=== PATIENT | female | born 1990 | race Caucasian/White ===

== ENCOUNTER 2017-01-10 16:20 | Emergency (ER) | payer OTHER ==
[~2017-01-10] VITALS: Ht 167.6 cm; Wt 67.0 kg
[~2017-01-10 16:20] MED LIST: LEVO750T39 PO; OXYC1TAB24 PO
[2017-01-10 16:27] VITALS: BP 120/84; PULSE 87; RESP 14; O2SAT 100
[2017-01-10 17:35] LABS: BASOPHILS % (AUTO) 0.5 % (0-3); EOSINOPHILS % (AUTO) 1.8 % (0-5); MONOCYTES % (AUTO) 7.2 % (4-12); Mean Corpuscular Hemoglobin 29.3 pg (27.0-35.0); Mean Corpuscular Volume 86.7 fL (81-100); NEUTROPHILS % (AUTO) 63.6 % (40-74); Platelet Count 434 bil/L (150-400)
[2017-01-10 18:05] LABS: Magnesium 2.1 mg/dL (1.6-2.6)
[2017-01-10] MEDS ORDERED: HYDROcodone-APAP 5-325 mg Tablet PO ONE (19:00)
--- NOTE | 2017-01-10 19:08 | ED.REPORT ---
HPI-Abd Pain F Under 40 Date of Service January 10, 2017 ED Provider: Miguel Augustine PA-C Shana is a otherwise healthy 26-year-old female presents with a chief complaint of right lower quadrant abdominal pain. Patient reports a one-week history of insidious onset right lower quadrant abdominal pain which she describes as stabbing, and has woken her from sleep. She reports a history of a reposition herself in the bed was quite painful. Symptoms have improved since then. She reports a history of vaginal bleeding approximately 2 weeks ago that lasted for about a week despite one year without menstrual cycles. She reports vaginal discharge for the last week and vaginal burning today. She feels that a sexually transmitted disease is a possibility, that is unlikely because she uses a Mirena IUD. Admits chills, urinary frequency and nausea but denies fever, vomiting, diarrhea. Denies dysuria, hematuria. Admits back pain and a band across her mid back has been present for roughly 3 weeks. She states it feels "just like a kidney infection." She reports her back is tight, sore and tender. Denies numbness, tingling, weakness or pain in lower extremity. Denies fever, DM, HIV, organ transplant, immunosuppression, recent surgery, recent infection, history of back surgery, surgical implants and IV drug use. Denies bowel/bladder dysfunction and saddle anesthesia. Nursing Notes Stated Complaint: LOWER RIGHT PELVIC PAIN,LOWER BACK PAIN Chief Complaint: Female Abdominal Pain Nursing Notes Reviewed: Yes Allergies: Coded Allergies: azithromycin (Verified Allergy, Unknown, THROAT SWELLING, 07/10/16) Scheduled Doxycycline Monohydrate (Avidoxy) 100 Mg Tablet 100 MG PO BID Levofloxacin (Levofloxacin) 750 Mg Tablet 750 MG PO DAILY Sulfamethoxazole/Trimeth 800-160 mg (Bactrim DS) 1 Each Tablet 1 TABLET PO BID Scheduled PRN oxyCODONE (oxyCODONE) 5 Mg Tablet 5-10 MG PO QID PRN PRN For Pain oxyCODONE-Acetaminophen 5-325 mg (oxyCODONE-Acetaminophen 5-325 mg) 1 Each Tablet 1-2 TAB PO Q6H PRN PRN For Pain General Time Seen by MD: 18:45 Chief Complaint Abdominal pain Past Medical History Past Medical History Hx pyelonephritis, multiple ectopic pregnancies. Past Surgical History 3x Left salpingectomy Smoking History Never Smoker Social History Alcohol Use: Denies alcohol use Drug Use: Denies drug use Ambulatory Status Independent Review of Systems General: Denies fever, chills, malaise Gastrointestinal: Denies vomiting, diarrhea, abdominal pain. Genitourinary: Admits urinary urgency, vaginal bleeding, discharge, burning. Denies urgency, dysuria, hematuria Otherwise as noted in HPI. Physical Exam General: Well appearing, well developed, well nourished, no acute distress. Head: Atraumatic, normocephalic. Eyes: No scleral icterus or injection. No discharge. Vision grossly intact. ENT: Voice clear, hearing grossly intact. Respiratory: Regular rate and rhythm. Breath sounds present, clear to auscultation and equal bilaterally. No respiratory distress. No increased work of breathing, speaks in complete sentences. Cardiovascular: Regular rate and rhythm, without murmur, gallop or rub. No pedal edema. Gastrointestinal: Abdomen flat and moderately tender in the right lower quadrant without guarding or rebound. Bowel sounds normoactive. Back: Normal to inspection. Moderate spinous process tenderness around T12. Negative CVA tenderness to palpation or percussion. Skin: Warm and dry. : Normal external genitalia without lesions. Normal cervix with purulent discharge, IUD strings visualized. No bleeding or masses. [id number] CMT on bimanual exam, mild to moderate adnexal tenderness. Adnexa not appreciated. Neurological: Grossly nonfocal. Psychological: Alert and oriented. Speech appropriate, linear and logical. Behavior appropriate. Initial Vital Signs Vital Signs (First) Date Time Temp Pulse Resp B/P Pulse Ox O2 Delivery O2 Flow Rate FiO2 01/10/17 16:27 36.4 87 14 120/84 100 Room Air Initial VS: Vital signs normal Interpretation & Diagnostics Lab Results Interpretation Result Diagram: 01/10/17 1727 01/10/17 1727 Test 01/10/17 17:27 01/10/17 18:59 01/10/17 20:02 White Blood Count 13.0th/mm3 (3.8-10.1) Red Blood Count 4.57mil/mm3 (3.90-5.20) Hemoglobin 13.4g/dL (12.0-15.6) Hematocrit 39.6% (35.0-46.0) Mean Corpuscular Volume 86.7fL (81-100) Mean Corpuscular Hemoglobin 29.3pg (27.0-35.0) Mean Corpuscular Hemoglobin Concent 33.8% (32.0-37.0) Red Cell Distribution Width 12.5% (12.3-15.4) Platelet Count 434bil/L (150-400) Neutrophils (%) (Auto) 63.6% (40-74) Lymphocytes (%) (Auto) 26.7% (14-46) Monocytes (%) (Auto) 7.2% (4-12) Eosinophils (%) (Auto) 1.8% (0-5) Basophils (%) (Auto) 0.5% (0-3) Sodium Level 141mEq/L (134-144) Potassium Level 4.0mEq/L (3.5-5.2) Chloride Level 102mEq/L (97-108) Carbon Dioxide Level 23mmol/L (18-29) Blood Urea Nitrogen 9mg/dL (6-20) Creatinine 0.60mg/dL (0.57-1.00) Estimat Glomerular Filtration Rate 174mL/min (>59) Glucose Level 99mg/dL (60-99) Calcium Level 9.6mg/dL (8.5-10.1) Magnesium Level 2.1mg/dL (1.6-2.6) Total Bilirubin 0.4mg/dL (0.0-1.2) Aspartate Amino Transf (AST/SGOT) 13U/L (0-50) Alanine Aminotransferase (ALT/SGPT) 11U/L (0-32) Alkaline Phosphatase 83U/L (25-150) Total Protein 7.8g/dL (6.4-8.4) Albumin 4.4g/dL (3.4-5.0) Lipase 12U/L (13-60) Hold Echeverria Top Tube Received (Received) Urine Color Yellow (YELLOW) Urine Appearance Cloudy (CLEAR,HAZY) Urine pH 7.0 (5.0-8.0) Urine Specific [place] 1.020 (1.003-1.035) Urine Protein Negativemg/dL (NEG,TRACE) Urine Glucose (UA) Negativemg/dL (NEGATIVE) Urine Ketones Negativemg/dL (NEGATIVE) Urine Occult Blood Trace (NEGATIVE) Urine Nitrite Negative (NEGATIVE) Urine Bilirubin Negative (NEGATIVE) Urine Urobilinogen Normalmg/dL (NORMAL) Urine Leukocyte Esterase Small (NEGATIVE) Urine RBC 0-2/hpf (0-2) Urine WBC >50/hpf (0-5) Urine Epithelial Cells Few/hpf (NONE-MOD) Urine Crystals None seen (NONE SEEN) Urine Bacteria Many/hpf (NONE-FEW) Urine Hyaline Casts None/lpf (NONE) Urine Granular Casts None seen (NONE SEEN) Urine Waxy Casts None seen (NONE SEEN) Urine Red Blood Cell Casts None seen (NONE SEEN) Urine White Blood Cell Casts None seen (NONE SEEN) Urine Mucus None seen (None Seen) Urine Trichomonas None seen (NONE SEEN) Urine Yeast None (NONE SEEN) Urinalysis Comment None Urine Culture Reflexed Indicated Re-Eval/Medical Decision Med Decision/Clinical Course Med Decision/Clinical Course: Discussed this case with Dr. Connolly 6-year-old female otherwise healthy presenting with chief complaint of back pain and right lower quadrant pain. Back pain worsening over the last 3 weeks, patient states feels like pyelonephritis. Complains of tightness and tenderness. Denies red flag symptoms for cauda equina, epidural abscess, epidural hematoma. Right lower quadrant pain wrist and over the last week initially associated with vaginal bleeding, now vaginal discharge and burning. Patient believes she is at risk for sexually transmitted disease. Denies due to Mirena IUD. Reports a history of ectopic . Physical examination reveals spinous process tenderness at roughly T12, negative CVA tenderness. Right pelvic tenderness to palpation. Mild CMT and adnexal tenderness, purulent discharge noted on speculum exam, IUD strings in place. CBC reveals mild leukocytosis. CMP is unremarkable. Urinalysis suggests a tract infection. Urine dip negative. I have little concern for epidural abscess or hematoma, despite point tenderness due to lack of risk factors. Little concern for cauda equina, acute disc herniation, AAA, cancer. Because the patient states this feels like her previous kidney infections, I believe it is reasonable to treat for kidney infection, despite lack of CVA tenderness. Prescription Bactrim DS twice a day 10 days. First dose given in department I also believe it is reasonable to treat empirically for pelvic inflammatory disease due to cervical motion tenderness and purulent discharge. Provided ceftriaxone 250 mg IM as well as initial dose of doxycycline 100 mg. Prescribed doxycycline 100 mg twice a day 14 days. The visor [id number] analgesia and provide a small amount of oxycodone to supplement with precautions. Advise primary or gynecological follow-up in the next week. Provided emergency return precautions. His questions and thus my ability. Patient verbalizes understanding of a consent to the plan. Discharge & Departure Primary Impression: Pelvic inflammatory disease (PID) Additional Impression: Urinary tract infection Urinary tract infection type: acute pyelonephritis Qualified Code: N10 - Acute pyelonephritis Disposition: Home Discharge Condition All VS Reviewed: Yes Condition: Stable Patient Instructions: Pelvic Inflammatory Disease (ED) Additional Instructions: Evaluation in the emergency department for pelvic pain includes history, physical, blood work, urinalysis. These suggest that you have a condition called pelvic inflammatory disease which is typically caused by gonorrhea or chlamydia. We do not have lab results back on the specific test but we feel it is worthwhile to treat you for this condition, as it can become quite dangerous if untreated. The treatment will be one shot of antibiotics here in the emergency department followed by doxycycline 100 mg twice a day for 2 weeks. He will get her first dose here in the emergency department. It also appears you have a urinary tract infection. Because you described your symptoms as being very similar to previous kidney infections, we will treat this as if it were a kidney infection. This is treated with Bactrim DS twice a day for 10 days. He will get her first dose here in the emergency department. The pain is best treated with 800 mg of ibuprofen (Advil, Motrin) every 6 hours , or 1000 mg of acetaminophen (Tylenol) every 6 hours. These drugs can be taken at the same time for more severe pain. I will give you a prescription for a small amount of oxycodone to supplement her pain not controlled by these other medications. Please not drink alcohol or operate vehicle within 4 hours of taking this medication. Follow-up with either Dr. William or your primary care provider in about one week to be sure this is progressing as expected. Return to emergency department for new or worsening symptoms including increasing pain, fever, numbness between your legs, loss of bowel/bladder control. Referrals: [facility] (PCP) EDSupervising Provider for APC: Randall Connolly MD copies to: [facility] Seth PA-C January 10, 2017 19:08
[2017-01-10] MEDS ORDERED: Ondansetron 8 mg ODT Tablet PO ONE (19:10)
[2017-01-10 20:08] LABS: APPEARANCE,URINE CLOUDY (CLEAR,HAZY); COLOR,URINE YELLOW (YELLOW); OCCULT BLOOD,URINE TRACE (NEGATIVE); UROBILINOGEN,URINE NORMAL (NORMAL)
[2017-01-10 20:35] VITALS: BP 130/91; PULSE 106; RESP 20; O2SAT 100
[2017-01-10] MEDS ORDERED: Trimethoprim-Sulfa 160 mg-800 mg Tablet PO ONE (20:40)
[2017-01-10] MEDS ORDERED: cefTRIAXone Inj 250 MG, Lidocaine PF 1% Inj 0.9 ML in Syringe 1 EACH IM ONE (20:40)
[2017-01-10] MEDS ORDERED: OXYC5TAB72 PO (20:47)
[2017-01-10] MEDS ORDERED: DOXY100T56 PO (20:47)
[2017-01-10] MEDS ORDERED: SULF1TAB7 PO (20:47)
== END 2017-01-10 21:25 | disposition home or self-care (01) ==
LOC: SED 16:20
DX: N73.9 Female pelvic inflammatory disease, unspecified (principal); N10 Acute pyelonephritis; B96.20 Unspecified Escherichia coli [E. coli] as the cause of diseases classified elsewhere; Z88.1 Allergy status to other antibiotic agents
CPT/HCPCS: 36415; 80053; 81000; 81025; 83690; 83735; 85025; 87077; 87086; 87088; 87186; 87210; 87491; 87591; 96372; 99284; J0696